=== PATIENT | male | born 1960 | race Caucasian/White ===

== ENCOUNTER 2024-03-21 06:19 | Day surgery (SDC) | payer BC, SELFPAY ==
[2024-03-21 07:54] VITALS: BMI 33.1
[2024-03-21 07:55] VITALS: BMI 33.1
[2024-03-21 07:56] VITALS: BP 148/84
[2024-03-21] MEDS: TYLENOL 1000 MG PO (08:05)
[2024-03-21] MEDS: CELEBREX 200 MG PO (08:05)
[2024-03-21] MEDS: NORMOSOL-R/PLASMALYTE-A 1000 IV (08:06)
[2024-03-21 10:48] VITALS: BP 146/83; BP 148/84
[2024-03-21 11:00] VITALS: BP 138/83
[2024-03-21 11:15] VITALS: BP 130/91
[2024-03-21 11:30] VITALS: BP 136/79
[2024-03-21 12:01] VITALS: BP 141/78
== END 2024-03-21 12:35 | disposition home or self-care (01) ==
LOC: SDS 06:19
PROVIDERS: ATTENDING PHYSICIAN Specialist; FAMILY PHYSICIAN Family Medicine
DX: M75.121 Complete rotator cuff tear or rupture of right shoulder, not specified as traumatic (principal); M75.21 Bicipital tendinitis, right shoulder
CPT/HCPCS: 29827; 29828; C1713